=== PATIENT | male | born 1945 | race Caucasian/White ===

== ENCOUNTER → 2016-07-02 | Outpatient (CLI) | payer MEDICARE ==
[~2016-07-02] MED LIST: /TAMS4CA OR; ACET65TA OR; ALBUTEROL INHALER INH; ASPI81CH32 PO; AVOD0.5C OR; CIPR250T3 OR; CIPR25SS OR; LEVA750T OR; PHEN 25 OR; PLAV75TA38 PO; PRIL20CA OR; PRIL20CA9 PO; SIMV20TA2 OR; TESS100C OR; TYLE325T5 PO; ZOCOR OR; cipro
== END ==
LOC: M SMT 10:50
PROVIDERS: ATTEND Urology
DX: R31.9 Hematuria, unspecified (principal)

== ENCOUNTER → 2016-08-05 | Outpatient (REF) | payer MEDICARE ==
[2016-08-05 13:48] LABS: TOTAL PROTEIN 8.2 GM/DL (6.4-8.2)
[2016-08-06 13:45] LABS: ALBUMIN 4.44 GM/DL (3.29-5.55); ALBUMIN % 54.1 % (55.8-66.1); GAMMA GLOBULIN % 14.5 % (11.1-18.8)
== END ==
LOC: M LAB REF 12:08
DX: R77.9 Abnormality of plasma protein, unspecified (principal)

== ENCOUNTER 2016-10-11 09:54 | Inpatient (IN) | payer MEDICARE ==
[~2016-10-11] VITALS: Ht 175.3 cm; Wt 75.1 kg
[2016-10-11] MEDS ORDERED: FINA5TAB2 (10:03)
[2016-10-11] MEDS ORDERED: ASPIRIN 81 MG CHEW TABLET PO ONE ×2 (10:15→10:30)
[2016-10-11 10:37] LABS: BASO % 0.1 % (0.0-1.0); EOS % 0.3 % (0.0-3.0); LARGE UNSTAINED CELL # 0.1 K/mm3 (0.0-0.4); LARGE UNSTAINED CELL % 0.4 % (0.0-4.0); LYMPH # 0.7 K/mm3 (1.5-4.5); LYMPH % 4.5 % (24.0-44.0); MEAN CORPUSCULAR HEMOGLOBIN 26.2 pg (27.0-33.0); MEAN CORPUSCULAR HGB CONC 32.2 g/dl (32.0-36.5); MEAN CORPUSCULAR VOLUME 81.3 fl (80.0-96.0); MONO # 0.6 K/mm3 (0.0-0.8); MONO % 3.8 % (0.0-5.0); NEUTROPHILS # 14.4 K/mm3 (1.8-7.7); NEUTROPHILS % 90.7 % (36.0-66.0); PLATELET COUNT, AUTOMATED 296 k/mm3 (150-450); RED CELL DISTRIBUTION WIDTH 13.9 % (11.5-14.5); WHITE BLOOD COUNT 15.9 K/mm3 (4.0-10.0)
--- NOTE | 2016-10-11 10:38 | REP ---
Chest one-view HISTORY: Chest pain Comparison: 09/30/2015 Increased density is present in the left lower lobe consistent with atelectasis or infiltrate. The right lung is clear. The heart is normal in size. The pulmonary vasculature is normal in appearance. Impression: Left lower lobe atelectasis or infiltrate. Signed by Antolin Barrera MD 10/11/2016 10:29 A
[2016-10-11] MEDS ORDERED: NS 500 ML IV ONE (11:00)
[2016-10-11 11:01] LABS: ANION GAP 11 MEQ/L (8-16); BLOOD UREA NITROGEN 20 MG/DL (7-18); CALCIUM LEVEL 9.4 MG/DL (8.8-10.2); CARBON DIOXIDE LEVEL 23 MEQ/L (21-32); CHLORIDE LEVEL 105 MEQ/L (98-107); CREATININE FOR GFR 1.05 MG/DL (0.70-1.30); GLOMERULAR FILTRATION RATE > 60.0 (>49); GLUCOSE, FASTING 109 MG/DL (80-110); SODIUM LEVEL 139 MEQ/L (136-145)
[2016-10-11] MEDS ORDERED: LevoFLOXacin IV 500 MG in APPROPRIATE DILUENT 1 EA IV ONE (11:15)
[2016-10-11] MEDS ORDERED: ASPI1TAB PO (11:22)
[2016-10-11] MEDS ORDERED: FINA5TAB2 PO (11:22)
[2016-10-11] MEDS ORDERED: SIMV20TA2 PO (11:22)
[2016-10-11] MEDS ORDERED: PERCOCET 5MG/325MG TAB PO ONE (12:15)
--- NOTE | 2016-10-11 13:42 | HPEPDOC ---
Medical History and Physical Date of Admission 10/11/16 History and Physical ATTENDING: Dr. Pereira PCP: Dr Rich CC: Chest pain HPI: 71 yo M with a past medical history significant for GERD, carotid vascular disease, hyperlipidemia, BPH who states he woke up this morning at 4 AM with chest discomfort on the left side. He states he had had sweating during the night, unknown if he had fever. Does not report chills. States he did notice some shortness of breath for the past week with a dry cough. No sputum production. Patient states he's been feeling generally tired with some nausea this morning. He is now attempting to eat lunch. Denies any VALENTE, palpitations, abdominal pain, N/V/D or changes in bowel or bladder habits. Upon presentation to the hospital the patient was found to have CAP, thus the hospitalist team was consulted. PMHx: GERD Carotid vascular disease/occluded left carotid. Follows with Dr Hernandez in [place]. Hyperlipidemia BPH. Follows with Dr. Wynne PSHX: Bob fundoplication Colonoscopy 11/29 Emmy TURP 06/26 SOCHX: Resides in: [place] Marital Status: Kids: 3, 1 Employment: retired Tobacco use: denies ETOH: denies Illicit Drugs: Denies Recent travel: denies Advanced directives: none FAMHX: Mother: , ESRD, cardiomyopathy Father: , Parkinson's disease Siblings: Alive, well Children: Alive. History of colon cancer Unexpected deaths due to medical reasons: Daughter Crohn's, ESRD.. ROS: As noted in HPI, otherwise 11pt ROS of systems reviewed and unremarkable. PE: GEN: 71yoM, appears stated age. Well-nourished, well developed. No acute distress. Alert and oriented x 3. Pleasant, interactive. HEENT: Normocephalic, atraumatic. Pupils are equal, round, and reactive to light. Extraocular movements are intact. No nystagmus appreciated. Sclera are nonicteric. Conjunctiva without injection. Nose midline. Nasal turbinates without bogginess. EACs both patent BL. TMs both visualized and maldonado with good cone of light, no bulging or erythema. No facial asymmetry. Moist mucous membranes. Dentition fair. Pharynx pink and moist, no cobblestoning. Neck supple , trachea midline. No lymphadenopathy or thyromegaly appreciated. CHEST: Regular rate and rhythm, +S1, +S2 LUNGS: Good air entry, rales noted at left base. No wheezes, or rhonchi. Breathing appears symmetric and easy. Patient is speaking in full sentences. No accessory muscle use. ABD: Round, soft, non-tender, non-distended. +Bowel sounds throughout. No rebound or guarding. No costovertebral angle tenderness. EXT: Pulses 2+ bilaterally dorsalis pedis and radial. No lower extremity edema appreciated. SKIN: [place], dry, warm. Capillary refill <2sec. No rashes. NEURO: Alert and oriented x 3. Cranial nerves III-XII are intact. No focal deficits appreciated. CXR: 10/11 Left lower lobe atelectasis or infiltrate. EKG: Sinus tachycardia, 101 bpm, occasional supraventricular, LVH, nonspecific ST-T wave abnormality. BLOOD CULTURES: Pending LA 2.1 A&P: 71 yo M with a past medical history significant for GERD, carotid vascular disease, hyperlipidemia, BPH who states he woke up this morning at 4 AM with chest discomfort on the left side. He states he had had sweating during the night, unknown if he had fever. Does not report chills. States he did notice some shortness of breath for the past week with a dry cough. No sputum production. The patient will be admitted to PCU for at least [address] Pereira's service. Pt is discussed with Dr Olivas. CP. Consistent with pleuritic pain and CAP. CIP/Trop x 3. Tylenol as needed. CAP. O2 as needed, neb treatments, IV levaquin 750mg daily. IVF 500cc in ED. SC , BC x2 pending. UA pending. Repeat LA at 15:00hrs ordered. Daily labs. Nausea. Resolved currently. Zofran prn. GERD. Continue PPI. Carotid vascular disease. Follows with Dr. Hernandez in [place]. Remains on aspirin 81 mg daily and Plavix 75 mg daily. Hyperlipidemia. Continue statin. BPH. Continue finasteride. Follows as outpatient with urology. DVT prophylaxis. Lovenox. The patient is a Full code Vital Signs Vital Signs Date Time Temp Pulse Resp B/P (MAP) Pulse Ox O2 Delivery O2 Flow Rate FiO2 10/11/16 12:57 86 18 126/74 96 Room Air 10/11/16 11:41 100.0 Laboratory Data Labs 24H Laboratory Tests 2 10/11/16 10:18: White Blood Count 15.9H, Red Blood Count 5.15, Hemoglobin 13.5L, Hematocrit 41.8L, Mean Corpuscular Volume 81.3, Mean Corpuscular Hemoglobin 26.2L, Mean Corpuscular Hemoglobin Concent 32.2, Red Cell Distribution Width 13.9, Platelet Count 296, Neutrophils (%) (Auto) 90.7H, Lymphocytes (%) (Auto) 4.5L, Monocytes (%) (Auto) 3.8, Eosinophils (%) (Auto) 0.3, Basophils (%) (Auto) 0.1, Neutrophils # (Auto) 14.4H, Lymphocytes # (Auto) 0.7L, Monocytes # (Auto) 0.6, Eosinophils # (Auto) 0.0, Basophils # (Auto) 0.0, Large Unclassified Cells % 0.4 , Large Unclassified Cells # 0.1, Anion Gap 11, Glomerular Filtration Rate > 60.0, Lactic Acid Level 2.1*H, Blood Urea Nitrogen 20H, Creatinine 1.05, Sodium Level 139, Potassium Level 4.0, Chloride Level 105, Carbon Dioxide Level 23, Calcium Level 9.4, Total Creatine Kinase 97, Creatine Kinase MB 1.0, Creatine Kinase MB Relative Index 1.03, Troponin I < 0.02, B-Type Natriuretic Peptide 27.4 CBC/BMP Laboratory Tests 10/11/16 10:18 Red Blood Count 5.15, Mean Corpuscular Volume 81.3, Mean Corpuscular Hemoglobin 26.2 L, Mean Corpuscular Hemoglobin Concent 32.2, Red Cell Distribution Width 13.9, Neutrophils (%) (Auto) 90.7 H, Lymphocytes (%) (Auto) 4.5 L, Monocytes (% ) (Auto) 3.8, Eosinophils (%) (Auto) 0.3, Basophils (%) (Auto) 0.1, Neutrophils # (Auto) 14.4 H, Lymphocytes # (Auto) 0.7 L, Monocytes # (Auto) 0.6, Eosinophils # (Auto) 0.0, Basophils # (Auto) 0.0, Calcium Level 9.4, Total Creatine Kinase 97 Microbiology Microbiology 10/11/16 Blood Culture, Received Pending 10/11/16 Blood Culture, Received Pending Home Medications Scheduled Aspirin (Aspirin 81) 81 Mg Tab, 81 MG PO DAILY Clopidogrel Bisulfate (Plavix) 75 Mg Tab, 75 MG PO DAILY Finasteride (Finasteride) 5 Mg Tab, 5 MG PO QPM Omeprazole (Prilosec) 20 Mg Cap, 20 MG PO DAILY Simvastatin (Simvastatin) 20 Mg Tab, 20 MG PO QHS Scheduled PRN Acetaminophen (Tylenol) 325 Mg Tab, 650 MG PO Q4H PRN for PAIN OR FEVER Allergies Coded Allergies: No Known Drug Allergy (Verified Allergy, Unknown, 09/17/12) Analy [place] Oct 11, 2016 13:42
[2016-10-11] MEDS ORDERED: IPRATROPIUM 0.5MG/ALBUTEROL 2.5MG INH SOL UD 3ML (DUONEB)(J7620) NEB PRN (14:00)
[2016-10-11] MEDS ORDERED: ONDANSETRON 4MG/2ML VIAL (J2405) IV PRN (14:00)
[2016-10-11] MEDS: IPRATROPIUM 0.5MG/ALBUTEROL 2.5MG INH SOL UD 3ML (DUONEB)(J7620) NEB SCH ×2 (14:00→19:22)
[2016-10-11] MEDS ORDERED: ACETAMINOPHEN TAB 650MG DOSE (2X325MG) PO PRN (14:00)
[2016-10-11 15:35] VITALS: BP 119/75
[2016-10-11] MEDS ORDERED: NS 1,000 ML IV ONE (16:00)
[2016-10-11] MEDS: ENOXAPARIN 40 MG/0.4 ML SYRINGE (J1650) SC SCH (16:35)
[2016-10-11] MEDS: SIMVASTATIN 20 MG TAB PO SCH (20:27)
[2016-10-11] MEDS: FINASTERIDE 5 MG TAB PO SCH (20:27)
[2016-10-11 22:00] VITALS: BP 106/62
[2016-10-12] MEDS: IPRATROPIUM 0.5MG/ALBUTEROL 2.5MG INH SOL UD 3ML (DUONEB)(J7620) NEB SCH ×4 (02:00→19:45)
[2016-10-12 06:00] VITALS: BP 136/79
[2016-10-12 06:09] LABS: BASO % 0.3 % (0.0-1.0); EOS # 0.1 K/mm3 (0.0-0.50); EOS % 1.2 % (0.0-3.0); LARGE UNSTAINED CELL # 0.1 K/mm3 (0.0-0.4); LYMPH # 1.8 K/mm3 (1.5-4.5); LYMPH % 20.3 % (24.0-44.0); MEAN CORPUSCULAR HEMOGLOBIN 27.1 pg (27.0-33.0); MEAN CORPUSCULAR HGB CONC 32.7 g/dl (32.0-36.5); MEAN CORPUSCULAR VOLUME 82.8 fl (80.0-96.0); MONO # 0.4 K/mm3 (0.0-0.8); MONO % 4.7 % (0.0-5.0); NEUTROPHILS # 6.4 K/mm3 (1.8-7.7); NEUTROPHILS % 72.5 % (36.0-66.0); PLATELET COUNT, AUTOMATED 261 k/mm3 (150-450); WHITE BLOOD COUNT 8.9 K/mm3 (4.0-10.0)
[2016-10-12 06:36] LABS: ALBUMIN/GLOBULIN RATIO 0.73 (1.00-1.93); ALKALINE PHOSPHATASE 84 U/L (45-117); ALT/SGPT 24 U/L (12-78); ANION GAP 6 MEQ/L (8-16); AST/SGOT 15 U/L (15-37); BILIRUBIN,TOTAL 0.5 MG/DL (0.2-1.0); BLOOD UREA NITROGEN 14 MG/DL (7-18); CALCIUM LEVEL 8.6 MG/DL (8.8-10.2); CARBON DIOXIDE LEVEL 28 MEQ/L (21-32); CHLORIDE LEVEL 108 MEQ/L (98-107); CREATININE FOR GFR 0.96 MG/DL (0.70-1.30); GLOMERULAR FILTRATION RATE > 60.0 (>49); GLUCOSE, FASTING 97 MG/DL (80-110); POTASSIUM SERUM 4.3 MEQ/L (3.5-5.1); SODIUM LEVEL 142 MEQ/L (136-145); TOTAL PROTEIN 7.1 GM/DL (6.4-8.2)
--- NOTE | 2016-10-12 08:44 | ECGEPIP ---
Stationary ECG Study [facility] - ED Test Date: 2016-10-11 Pat Name: MICHELET VARELA Department: Room: - Gender: M Tie Buyer: RAMÓN : 1945 Requested By: TRAMAINE Balderas Order Number: [id number] Reading MD: Jojo Mike Measurements Intervals [place] Rate: 101 P: 13 SD: 124 QRS: -24 QRSD: 96 T: -18 QT: 318 QTc: 414 Interpretive Statements SINUS TACHYCARDIA WITH OCCASIONAL SUPRAVENTRICULAR PREMATURE COMPLEXES BORDERLINE LEFT AXIS DEVIATION LAE MINIMAL VOLTAGE CRITERIA FOR LVH, CONSIDER NORMAL VARIANT NONSPECIFIC T-WAVE ABNORMALITY ABNORMAL RHYTHM ECG SIMILAR 09/30/15 Electronically Signed On 10-12-2016 8:43:48 EDT by Jojo Mike
[2016-10-12] MEDS: CLOPIDOGREL 75 MG TAB PO SCH (08:48)
[2016-10-12] MEDS: ASPIRIN 81 MG ENTERIC TAB PO SCH (08:48)
[2016-10-12] MEDS: OMEPRAZOLE 20 MG CAP PO SCH (08:49)
[2016-10-12] MEDS: ENOXAPARIN 40 MG/0.4 ML SYRINGE (J1650) SC SCH (08:49)
[2016-10-12] MEDS: LevoFLOXacin IV 750 MG in APPROPRIATE DILUENT 1 EA IV SCH (11:38)
--- NOTE | 2016-10-12 12:18 | IPNPDOC ---
Subjective Date Seen The patient was seen on 10/12/16. Subjective Chief Complaint/HPI The patient is a 71-year-old male admitted with a reason for visit of Pneumonia. General: Denies: Chills Constitutional: Denies: Chills Eyes: Denies: Vision change, Conjunctivae inflammation, Eyelid inflammation Pulmonary: Denies: Dyspnea, Cough Cardiovascular: Denies: Chest Pain, Palpitations Gastrointestinal: Denies: Nausea, Vomiting, Abdominal Pain, Diarrhea, Constipation Neurological: Denies: Weakness Psych: Reports: Mood Normal Objective Physical Examination General Exam: Positive: Alert, Cooperative, No Acute Distress Eye Exam: Positive: Conjunctiva & lids normal, EOMI, Negative: Sclera icteric, Ptosis ENT Exam: Positive: Mucous membr. moist/pink, Nares Patent Chest Exam: Positive: Wheezing (end exp wheeze right UL), Diminished (LLL), Negative: Rales, Rhonchi Heart Exam: Positive: Rate Normal, Normal S1, Normal S2, Negative: Tachycardic, Bradycardic Abdomen Exam: Positive: Normal bowel sounds, Soft, Negative: BS Hyperactive, BS Hypoactive, Tenderness, Hepatospenomegaly Extremity Exam: Negative: Clubbing, Edema Assessment /Plan Problems (1) Left sided chest pain Status: Acute Response to Treatment: Stable Problem Text: pt denies CP today likely 2/2 pleuritic pain and CAP. Trop x 4 Tylenol as needed continue to monitor (2) Pneumonia Status: Acute Response to Treatment: Stable Problem Text: pt denies SOB on exam today O2 as needed Duoneb treatments levaquin antibiotic therapy. blood cx neg 48 hrs, ua negative, resp. panel neg, repeat lactic down to 1.2, sputum pending, wbc down to 8.9 from15.9 continue to monitor (3) Hyperlipidemia Status: Chronic Response to Treatment: Stable Problem Text: continue with home medications (4) Carotid artery disease Status: Chronic Response to Treatment: Stable Problem Text: stable follows w/ Dr. Hernandez in [place] continue with plavix and aspirin continue to monitor (5) DVT prophylaxis Plan/VTE VTE Prophylaxis Ordered?: Yes VS, I&O, 24H, Fishbone Vital Signs/I&O Vital Signs Date Time Temp Pulse Resp B/P (MAP) Pulse Ox O2 Delivery O2 Flow Rate FiO2 10/12/16 09:00 Room Air 10/12/16 06:00 98.7 67 17 136/79 ( 96 I&O- Last 24 Hours up to 6 AM 10/12/16 05:59 Intake Total 2660 ml Output Total 1040 ml Balance 1620 ml Laboratory Data 24H LABS Laboratory Tests 2 10/11/16 15:10: Lactic Acid Followup at 4 Hours 2.4*H 10/11/16 18:20: Lactic Acid Level 3.7*H, Total Creatine Kinase 74, Creatine Kinase MB 1.3, Creatine Kinase MB Relative Index 1.75, Troponin I < 0.02 10/11/16 20:33: Urine Appearance CLEAR, Urine Color STRAW, Urine pH 6.0, Urine Specific [place] 1.010, Urine Protein NEGATIVE, Urine Glucose (UA) NEGATIVE, Urine Ketones NEGATIVE, Urine Urobilinogen 0.2, Urine Bilirubin NEGATIVE, Urine Leukocyte Esterase NEGATIVE, Urine Blood NEGATIVE, Urine Nitrite NEGATIVE, Urine WBC (Auto ) 0, Urine RBC (Auto) 3, Urine Hyaline Casts (Auto) 0, Urine Bacteria (Auto) NEGATIVE, Urine Squamous Epithelial Cells 0, Urine Sperm (Auto) 10/11/16 23:52: Total Creatine Kinase 68, Creatine Kinase MB 1.0, Creatine Kinase MB Relative Index 1.47, Troponin I < 0.02 10/11/16 23:53: Lactic Acid Followup at 4 Hours 1.2 10/12/16 05:53: White Blood Count 8.9, Red Blood Count 4.49, Hemoglobin 12.2L, Hematocrit 37.2L , Mean Corpuscular Volume 82.8, Mean Corpuscular Hemoglobin 27.1, Mean Corpuscular Hemoglobin Concent 32.7, Red Cell Distribution Width 14.0, Platelet Count 261, Neutrophils (%) (Auto) 72.5H, Lymphocytes (%) (Auto) 20.3L, Monocytes (%) (Auto) 4.7, Eosinophils (%) (Auto) 1.2, Basophils (%) (Auto) 0.3, Neutrophils # (Auto) 6.4, Lymphocytes # (Auto) 1.8, Monocytes # (Auto) 0.4, Eosinophils # (Auto) 0.1, Basophils # (Auto) 0.0, Large Unclassified Cells % 1.0 , Large Unclassified Cells # 0.1, Anion Gap 6L, Glomerular Filtration Rate > 60.0, Blood Urea Nitrogen 14, Creatinine 0.96, Sodium Level 142, Potassium Level 4.3, Chloride Level 108H, Carbon Dioxide Level 28, Calcium Level 8.6L, Aspartate Amino Transf (AST/SGOT) 15, Alanine Aminotransferase (ALT/SGPT) 24, Alkaline Phosphatase 84, Total Bilirubin 0.5, Total Protein 7.1, Albumin 3.0L, Albumin/Globulin Ratio 0.73L 10/12/16 11:06: Total Creatine Kinase 71, Creatine Kinase MB 1.0, Creatine Kinase MB Relative Index 1.40, Troponin I < 0.02 CBC/BMP Laboratory Tests 10/12/16 05:53 Red Blood Count 4.49, Mean Corpuscular Volume 82.8, Mean Corpuscular Hemoglobin 27.1, Mean Corpuscular Hemoglobin Concent 32.7, Red Cell Distribution Width 14.0 , Neutrophils (%) (Auto) 72.5 H, Lymphocytes (%) (Auto) 20.3 L, Monocytes (%) ( Auto) 4.7, Eosinophils (%) (Auto) 1.2, Basophils (%) (Auto) 0.3, Neutrophils # ( Auto) 6.4, Lymphocytes # (Auto) 1.8, Monocytes # (Auto) 0.4, Eosinophils # (Auto ) 0.1, Basophils # (Auto) 0.0, Calcium Level 8.6 L, Aspartate Amino Transf (AST/ SGOT) 15, Alanine Aminotransferase (ALT/SGPT) 24, Alkaline Phosphatase 84, Total Bilirubin 0.5, Total Protein 7.1, Albumin 3.0 L Microbiology Microbiology 10/11/16 Blood Culture - Preliminary, Resulted No growth after 24 hours . All specim... 10/11/16 Blood Culture - Preliminary, Resulted No growth after 24 hours . All specim... 10/12/16 Respiratory Virus Panel (PCR) (TRISTAN) - Final, Complete 10/11/16 Influenza Virus Type A Antigen - Final, Complete 10/11/16 Influenza Virus Type B Antigen - Final, Complete GME ATTESTATION GME ATTESTATION My preceptor for this patient encounter was physically present in the building during the encounter and was fully available. As needed, all aspects of the patient interview, examination, medical decision making process, and medical care plan development were reviewed and approved by the preceptor. Preceptor is aware and concurs with the plan as stated in the body of this note and will attest to such by his/her cosignature. ATTENDING NOTE I have both independently examined this patient as well as reviewed the note. I have discussed in detail with the resident the findings and plan of treatment as documented in the residents note. I will continue to follow the patient and offer further guidance to the patients care as necessary during this hospital stay. HANS Quezada DO Oct 12, 2016 12:18 CRUZ WAGONER MD Oct 13, 2016 06:51
[2016-10-12 14:00] VITALS: BP 123/72
[2016-10-12] MEDS: FINASTERIDE 5 MG TAB PO SCH (20:08)
[2016-10-12] MEDS: SIMVASTATIN 20 MG TAB PO SCH (20:08)
[2016-10-12 22:00] VITALS: BP 115/66
[2016-10-13] MEDS: IPRATROPIUM 0.5MG/ALBUTEROL 2.5MG INH SOL UD 3ML (DUONEB)(J7620) NEB SCH ×3 (02:00→13:09)
[2016-10-13 06:00] VITALS: BP 142/90
[2016-10-13 06:03] LABS: BASO % 0.4 % (0.0-1.0); EOS # 0.2 K/mm3 (0.0-0.50); EOS % 2.3 % (0.0-3.0); LARGE UNSTAINED CELL # 0.1 K/mm3 (0.0-0.4); LARGE UNSTAINED CELL % 1.5 % (0.0-4.0); LYMPH % 23.3 % (24.0-44.0); MEAN CORPUSCULAR HEMOGLOBIN 26.4 pg (27.0-33.0); MEAN CORPUSCULAR HGB CONC 31.8 g/dl (32.0-36.5); MEAN CORPUSCULAR VOLUME 82.9 fl (80.0-96.0); MONO # 0.5 K/mm3 (0.0-0.8); MONO % 5.8 % (0.0-5.0); NEUTROPHILS # 5.4 K/mm3 (1.8-7.7); NEUTROPHILS % 66.7 % (36.0-66.0); PLATELET COUNT, AUTOMATED 280 k/mm3 (150-450); RED CELL DISTRIBUTION WIDTH 14.2 % (11.5-14.5); WHITE BLOOD COUNT 8.1 K/mm3 (4.0-10.0)
[2016-10-13 06:25] LABS: ALBUMIN/GLOBULIN RATIO 0.71 (1.00-1.93); ALKALINE PHOSPHATASE 92 U/L (45-117); ALT/SGPT 24 U/L (12-78); ANION GAP 9 MEQ/L (8-16); AST/SGOT 13 U/L (15-37); BILIRUBIN,TOTAL 0.4 MG/DL (0.2-1.0); BLOOD UREA NITROGEN 11 MG/DL (7-18); CALCIUM LEVEL 8.4 MG/DL (8.8-10.2); CARBON DIOXIDE LEVEL 23 MEQ/L (21-32); CHLORIDE LEVEL 107 MEQ/L (98-107); CREATININE FOR GFR 0.96 MG/DL (0.70-1.30); GLOMERULAR FILTRATION RATE > 60.0 (>49); GLUCOSE, FASTING 97 MG/DL (80-110); POTASSIUM SERUM 3.8 MEQ/L (3.5-5.1); SODIUM LEVEL 139 MEQ/L (136-145); TOTAL PROTEIN 7.2 GM/DL (6.4-8.2)
[2016-10-13] MEDS: ENOXAPARIN 40 MG/0.4 ML SYRINGE (J1650) SC SCH (09:02)
[2016-10-13] MEDS: OMEPRAZOLE 20 MG CAP PO SCH (09:02)
[2016-10-13] MEDS: ASPIRIN 81 MG ENTERIC TAB PO SCH (09:02)
[2016-10-13] MEDS: CLOPIDOGREL 75 MG TAB PO SCH (09:02)
[2016-10-13] MEDS ORDERED: LEVO750T33 PO (10:19)
[2016-10-13] MEDS: LevoFLOXacin IV 750 MG in APPROPRIATE DILUENT 1 EA IV SCH (11:52)
--- NOTE | 2016-10-14 05:37 | DSES ---
DATE OF ADMISSION: 10/11/2016 DATE OF DISCHARGE: 10/13/2016 PRIMARY CARE PROVIDER: Dr. Prosper Rich. FINAL DIAGNOSES: 1. Community-acquired bacterial pneumonia with left-sided pleuritic chest pain. 2. Shortness of breath. 3. Dyslipidemia. 4. Carotid artery disease. HISTORY OF PRESENT ILLNESS: This is a 71-year-old male patient with underlying medical history of gastroesophageal reflux disease (GERD), carotid vascular disease, dyslipidemia, benign prostatic hypertrophy (BPH), who woke up in the morning of admission at 4 a.m. with chest discomfort left-sided and also was sweaty, and also shortness of breath and cough. The patient does not know if he had fevers and denies any chills. The patient also reported some dry cough with some shortness of breath. Denies any sick contact. Unable to produce any sputum. Feeling generally fatigued, some nausea, no vomiting with poor oral intake. Denies any change in bladder habits. Subsequently the patient presented to the hospital. Serial cardiac enzymes were done and were negative. The patient was found to have lactic acidosis. X-ray shows left lower lobe infiltrate. The patient was started on intravenous (IV) antibiotics. IV fluids were given. HOSPITAL COURSE: The patient was admitted to the hospital, started on IV antibiotics for community-acquired bacterial pneumonia, and IV fluids were given. Lactic acidosis resolved. The patient's condition returned to baseline with no shortness of breath, able to ambulate. Tolerating oral with only minimal cough. Comfortable, ready for discharge for further care as outpatient. Also noticed that patient has a systolic murmur, and the patient would like to followup with Dr. Wu as outpatient. Subsequently referral was made. Cardiac enzymes have been negative. Electrocardiograms (EKG) have been negative. Chest pain is most likely secondary to pneumonia with pleuritic pain. VITAL SIGNS: Temperature 99, pulse 79, respirations 18, blood pressure 142/90. Pulse oximetry 96% on room air. LABORATORY DATA: WBC 8.1, hemoglobin and hematocrit 12.4 over 38.8, platelets 280. Chemistry: Sodium 139, potassium 3.8, chloride 107, bicarbonate 23, BUN 11, creatinine 0.96. DISCHARGE MEDICATIONS: - Levaquin 750 mg by mouth daily for five more days - acetaminophen 650 mg by mouth every four hours as needed - aspirin 81 mg by mouth daily - Plavix 75 mg by mouth daily - finasteride 5 mg by mouth at bedtime - Prilosec 20 mg by mouth daily - Zocor 20 mg by mouth at bedtime DISCHARGE INSTRUCTIONS: The patient was instructed to followup with primary care provider in seven days. Return to the hospital if symptoms worsen. As per patient's desire, the patient would like to followup with Dr. Wu for the cardiac murmur. The patient is not sure whether the murmur is chronic or acute. He has no symptoms.
== END 2016-10-13 13:54 | disposition home or self-care (01) | DRG 195 ==
LOC: M ED 12:28 → M ED INP 13:48 → M MSPAV 15:20
PROVIDERS: ADMIT Internal Medicine; ATTEND Hospitalist
DX: J15.9 Unspecified bacterial pneumonia (principal); E78.5 Hyperlipidemia, unspecified; K21.9 Gastro-esophageal reflux disease without esophagitis; N40.0 Benign prostatic hyperplasia without lower urinary tract symptoms; Z79.899 Other long term (current) drug therapy; Z79.82 Long term (current) use of aspirin; I65.22 Occlusion and stenosis of left carotid artery

== ENCOUNTER 2016-11-19 13:58 | Emergency (ER) | payer MEDICARE ==
[~2016-11-19] VITALS: Ht 175.3 cm; Wt 80.3 kg
[~2016-11-19 13:58] MED LIST changes: +ASPI1TAB PO; +FINA5TAB2; +FINA5TAB2 PO; +LEVO750T33 PO; +SIMV20TA2 PO
--- NOTE | 2016-11-19 15:30 | REP ---
Chest two views HISTORY: Cough Comparison: 10/11/2016 There is elevation of the left hemidiaphragm. Linear density is present in the left lower lobe consistent with scar. The right lung is clear. The heart is normal in size. The pulmonary vasculature is normal in appearance. The bony structure is intact. IMPRESSION: Left lower lobe scar. Signed by Antolin Barrera MD 11/19/2016 03:22 P
[2016-11-19] MEDS ORDERED: ACET30TAB PO (15:42)
[2016-11-19] MEDS ORDERED: ZITHTAB PO (15:42)
[2016-11-19 15:50] VITALS: BP 142/79
--- NOTE | 2016-11-20 07:21 | ECGEPIP ---
Stationary ECG Study [facility] - ED Test Date: 2016-11-19 Pat Name: MICHELET VARELA Department: Room: - Gender: M Parole Director: tk : 1945 Requested By: Jojo Mike Order Number: [id number] Reading MD: Isrrael Calvert Measurements Intervals [place] Rate: 71 P: 14 AL: 166 QRS: -16 QRSD: 88 T: -7 QT: 379 QTc: 412 Interpretive Statements SINUS RHYTHM Electronically Signed On 11-20-2016 7:21:00 EDT by Isrrael Calvert
== END 2016-11-19 15:53 | disposition home or self-care (01) ==
LOC: M ED 14:45
DX: J06.9 Acute upper respiratory infection, unspecified (principal); M94.0 Chondrocostal junction syndrome [Tietze]; I10 Essential (primary) hypertension; I25.10 Atherosclerotic heart disease of native coronary artery without angina pectoris; E78.5 Hyperlipidemia, unspecified; I25.2 Old myocardial infarction; Z87.09 Personal history of other diseases of the respiratory system; Z79.899 Other long term (current) drug therapy; Z79.82 Long term (current) use of aspirin

== ENCOUNTER → 2017-01-29 | Outpatient (REF) | payer MEDICARE ==
[~2017-01-29] MED LIST changes: +ACET30TAB PO; +LEVO750T13 PO; -LEVO750T33 PO; +PLAV1TAB2 PO; -PLAV75TA38 PO; +ZITHTAB PO
== END ==
LOC: M SMT 13:20
PROVIDERS: ATTEND Urology
DX: N40.1 Benign prostatic hyperplasia with lower urinary tract symptoms (principal)

== ENCOUNTER → 2017-02-10 | Outpatient (REF) | payer MEDICARE ==
[2017-02-10 20:01] LABS: TOTAL PROTEIN 7.9 GM/DL (6.4-8.2)
[2017-02-12 12:22] LABS: ALBUMIN % 54.4 % (55.8-66.1); GAMMA GLOBULIN % 13.9 % (11.1-18.8)
== END ==
LOC: M LAB REF 18:11
PROVIDERS: ATTEND Family Medicine
DX: R77.9 Abnormality of plasma protein, unspecified (principal)

== ENCOUNTER → 2017-09-03 | Outpatient (CLI) | payer OTHER ==
[2017-09-03 13:35] LABS: PROSTATIC SPECIFIC AG MONITOR 3.67 NG/ML (< 4.0)
[2017-09-03 13:44] LABS: APPEARANCE, URINE CLEAR (CLEAR); BACTERIA, URINE AUTO NEGATIVE (NEGATIVE); BILIRUBIN, URINE AUTO NEGATIVE (NEGATIVE); BLOOD, URINE BLOOD NEGATIVE (NEGATIVE); COLOR, URINE YELLOW (YELLOW); GLUCOSE, URINE (UA) AUTO NEGATIVE (NEGATIVE); KETONE, URINE AUTO NEGATIVE (NEGATIVE); LEUKOCYTE ESTERASE, URINE AUTO NEGATIVE (NEGATIVE); MUCUS, URINE SMALL (NEGATIVE); NITRITE, URINE AUTO NEGATIVE (NEGATIVE); PROTEIN, URINE AUTO NEGATIVE (NEGATIVE); RBC, URINE AUTO 0 /HPF (0-3); SPECIFIC GRAVITY URINE AUTO 1.009 (1.002-1.035); SQUAMOUS EPITHELIAL CELL UR AU 0 /HPF (0-6); UROBILINOGEN, URINE AUTO 0.2 mg/dL (0.0-2.0); WBC, URINE AUTO 0 /HPF (0-3)
== END ==
LOC: M SMT 11:24
DX: N40.1 Benign prostatic hyperplasia with lower urinary tract symptoms (principal)
CPT/HCPCS: 84153

== ENCOUNTER → 2018-03-13 | Outpatient (CLI) | payer OTHER ==
[2018-03-15 00:06] LABS: PSA % FREE 13.4 % (.); PSA FREE 0.59 ng/mL; PSA TOTAL 4.4 ng/mL (0.0-4.0)
== END ==
LOC: M LAB 12:52
DX: N40.1 Benign prostatic hyperplasia with lower urinary tract symptoms (principal)
CPT/HCPCS: 84154

== ENCOUNTER → 2018-08-26 | Outpatient (REF) | payer OTHER ==
[2018-08-26 17:50] LABS: URINE TOTAL PROTEIN 11.1 MG/DL (0-12)
[2018-08-26 18:01] LABS: FERRITIN 25 NG/ML (26-388); TOTAL PROTEIN 7.9 GM/DL (6.4-8.2)
[2018-08-26 18:04] LABS: FOLATE 8.5 NG/ML; VITAMIN B12 LEVEL 476 PG/ML
[2018-08-27 11:50] LABS: ALBUMIN 4.15 GM/DL (3.29-5.55); ALBUMIN % 52.5 % (55.8-66.1); ALPHA-1-GLOBULIN % 4.1 % (2.9-4.9); ALPHA-1-GLOBULINS 0.32 GM/DL (0.17-0.41); ALPHA-2-GLOBULINS 0.97 GM/DL (0.42-0.99); ALPHA-2-GLOBULINS % 12.3 % (7.1-11.8); BETA-1-GLOBULINS 0.57 GM/DL (0.28-0.60); BETA-1-GLOBULINS % 7.2 % (4.7-7.2); BETA-2-GLOBULINS % 8.8 % (3.2-6.5); GAMMA GLOBULIN % 15.1 % (11.1-18.8); GAMMA GLOBULINS 1.19 GM/DL (0.65-1.58)
== END ==
LOC: M LAB REF 16:45
PROVIDERS: ATTEND Family Medicine
DX: D64.9 Anemia, unspecified (principal)

== ENCOUNTER → 2019-03-04 | Outpatient (CLI) | payer MEDICARE ==
[~2019-03-04] MED LIST changes: -/TAMS4CA OR; +ACET-716 PO; -ACET30TAB PO; -ASPI1TAB PO; -ASPI81CH32 PO; +ASPI81CH33 PO; +ASPI81TA26 PO; +FLOM0.4C39 OR
[2019-03-04 13:38] LABS: BLOOD UREA NITROGEN 14 MG/DL (7-18); CREATININE FOR GFR 1.11 MG/DL (0.70-1.30); GLOMERULAR FILTRATION RATE > 60.0 (>42)
== END ==
LOC: M LAB 11:58
PROVIDERS: ATTEND Neurological Surgery
DX: I65.22 Occlusion and stenosis of left carotid artery (principal)

== ENCOUNTER → 2019-04-12 | Outpatient (REF) | payer MEDICARE ==
[2019-04-15 00:07] LABS: PSA FREE 0.57 ng/mL; PSA TOTAL 5.7 ng/mL (0.0-4.0)
== END ==
LOC: M SMT 10:34
PROVIDERS: ATTEND Urology
DX: N40.1 Benign prostatic hyperplasia with lower urinary tract symptoms (principal); I65.22 Occlusion and stenosis of left carotid artery

== ENCOUNTER → 2019-04-12 | Outpatient (CLI) | payer MEDICARE ==
[2019-04-12 17:25] LABS: BLOOD UREA NITROGEN 12 MG/DL (7-18); CREATININE FOR GFR 1.12 MG/DL (0.70-1.30); GLOMERULAR FILTRATION RATE > 60.0 (>42)
== END ==
LOC: M LAB 16:35
PROVIDERS: ATTEND Neurological Surgery
DX: I65.22 Occlusion and stenosis of left carotid artery (principal)

== ENCOUNTER → 2019-05-11 | Outpatient (CLI) | payer MEDICARE ==
[~2019-05-11] MED LIST changes: -SIMV20TA2 PO; +SIMV20TA22 PO
--- NOTE | 2019-05-11 13:33 | REPPI ---
TRANSRECTAL PROSTATE ULTRASOUND WITH ULTRASOUND GUIDANCE FOR PROSTATE BIOPSY: Real-time sonographic evaluation of the prostate performed utilizing transrectal probe. The size of the gland is 4.2 x 2.0 x 4.3 cm for a total volume of 27.4 mL. Echotexture is heterogeneous. No focal mass is seen. Seminal vesicles appear unremarkable. Ultrasound guidance was provided by Dr. Flores who performed ultrasound guided biopsy of the prostate. Electronically Signed by Zoltan Mccauley MD 05/11/2019 02:32 P
== END ==
LOC: M SMT PRO 09:26
PROVIDERS: ATTEND Urology
DX: C61 Malignant neoplasm of prostate (principal)
CPT/HCPCS: 55700; 76872; 76942; G0416

== ENCOUNTER → 2019-05-11 | Outpatient (CLI) | payer MEDICARE | LOC: M SMT PRO 08:14 | PROVIDERS: ATTEND Urology | DX: C61 Malignant neoplasm of prostate (principal) ==

== ENCOUNTER → 2019-05-18 | Outpatient (CLI) | payer MEDICARE ==
[2019-05-18 17:41] LABS: BLOOD UREA NITROGEN 12 MG/DL (7-18); CALCIUM LEVEL 9.1 MG/DL (8.8-10.2); CARBON DIOXIDE LEVEL 28 MEQ/L (21-32); CHLORIDE LEVEL 103 MEQ/L (98-107); CREATININE FOR GFR 1.11 MG/DL (0.70-1.30); GLOMERULAR FILTRATION RATE > 60.0 (>42); GLUCOSE, FASTING 87 MG/DL (70-100); SODIUM LEVEL 138 MEQ/L (136-145)
== END ==
LOC: M LAB 16:33
PROVIDERS: ATTEND Urology
DX: C61 Malignant neoplasm of prostate (principal)
CPT/HCPCS: 36415; 80048; G0463

== ENCOUNTER → 2019-06-25 | Outpatient (CLI) | payer MEDICARE ==
[2019-06-25 10:47] LABS: HEMATOCRIT 42.2 % (42.0-52.0); HEMOGLOBIN 12.6 g/dl (13.5-17.5); MEAN CORPUSCULAR HEMOGLOBIN 23.9 pg (27.0-33.0); MEAN CORPUSCULAR HGB CONC 29.9 g/dl (32.0-36.5); MEAN CORPUSCULAR VOLUME 79.9 fl (80.0-96.0); PLATELET COUNT, AUTOMATED 414 10^3/uL (150-450); RED BLOOD COUNT 5.28 10^6/uL (4.30-6.10); WHITE BLOOD COUNT 8.6 10^3/uL (4.0-10.0)
[2019-06-25 11:00] LABS: INR 1.05; PARTIAL THROMBOPLASTIN TIME 29.9 SECONDS (25.0-38.4); PROTHROMBIN TIME 13.4 SECONDS (11.8-14.0)
[2019-06-25 11:17] LABS: BLOOD UREA NITROGEN 15 MG/DL (7-18); CARBON DIOXIDE LEVEL 24 MEQ/L (21-32); CHLORIDE LEVEL 104 MEQ/L (98-107); CREATININE FOR GFR 1.12 MG/DL (0.70-1.30); GLOMERULAR FILTRATION RATE > 60.0 (>42); GLUCOSE, FASTING 113 MG/DL (70-100); POTASSIUM SERUM 4.2 MEQ/L (3.5-5.1); SODIUM LEVEL 136 MEQ/L (136-145)
--- NOTE | 2019-06-25 11:48 | REP ---
CHEST, TWO VIEWS: Two views of the chest are performed and compared to a prior study 11/2016. Once again, there is elevation of the left hemidiaphragm. Multiple metallic clips are seen just beneath the left hemidiaphragm and also in the thoracic region in the midline inferiorly. There is no acute infiltrate or pulmonary edema. The heart is normal in size. There is tortuosity of the thoracic aorta. Mediastinal silhouette is unchanged. There are mild degenerative changes of the spine. IMPRESSION: No active pulmonary disease. Electronically Signed by Zoltan Mccauley MD 06/26/2019 03:14 P
== END ==
LOC: M LAB 10:21
PROVIDERS: ATTEND Urology
DX: Z01.818 Encounter for other preprocedural examination (principal); C61 Malignant neoplasm of prostate; Z79.01 Long term (current) use of anticoagulants

== ENCOUNTER → 2019-06-28 | Outpatient (REF) | payer MEDICARE | LOC: M SMT 13:24 | PROVIDERS: ATTEND Urology | DX: Z01.818 Encounter for other preprocedural examination (principal); C61 Malignant neoplasm of prostate; N39.0 Urinary tract infection, site not specified ==

== ENCOUNTER 2019-07-08 10:36 | Day surgery (SDC) | payer MEDICARE ==
[~2019-07-08] VITALS: Ht 175.3 cm; Wt 77.0 kg
[~2019-07-08 10:36] MED LIST changes: +ACET-683 PO; +LIDOCAINE 1% MDV 20ML VIAL SQ PRN; +LIDOCAINE 2% INJ 100 MG/5 ML SDV (FOR ANES.) As Ordered ONE; +MIDAZOLAM INJ 2 MG/2 ML VIAL (J2250) As Ordered ONE; +OMEP-218 PO; +ONDANSETRON 4MG/2ML VIAL (J2405) As Ordered ONE; +ROCURONIUM BROMIDE 50 MG/5 ML VIAL As Ordered ONE; +SUGAMMADEX SODIUM 500 MG/5 ML VIAL (BRIDION) As Ordered ONE; +dexameTHASONE 4 MG/ML 1ML VIAL (J1100) As Ordered ONE; +fentaNYL 250 MCG/5 ML INJECTION (J3010) As Ordered ONE; +propofoL 200 MG/20 ML VIAL As Ordered ONE
[2019-07-08] MEDS ORDERED: ceFAZolin SOD 2 GM in IV 1 EA IV ONE (11:00)
[2019-07-08] MEDS ORDERED: HEPARIN SOD (PORCINE) 5000 UNITS/ML VIAL (J1644 PER 1000UNITS) SQ ONE (11:00)
[2019-07-08] MEDS ORDERED: LR 1,000 ML IV ONE (12:00)
[2019-07-08] MEDS ORDERED: LIDOCAINE 1% SDV INJ 30 ML VIAL As Ordered ONE (12:10)
[2019-07-08] MEDS ORDERED: BUPIVACAINE HCL 0.25% 30ML VIAL As Ordered ONE (12:10)
[2019-07-08] MEDS ORDERED: ACETAMINOPHEN TAB 650MG DOSE (2X325MG) PO PRN (12:30)
[2019-07-08] MEDS ORDERED: PERCOCET 5MG/325MG TAB PO PRN (12:30)
[2019-07-08] MEDS ORDERED: MORPHINE 2 MG/ML 1ML VIAL (J2270) IV PRN ×2 (12:30→18:00)
[2019-07-08] MEDS ORDERED: ACETAMINOPHEN 1000MG 100ML IV BTL (OFIRMEV) (J0131 PER 10MG) As Ordered ONE (13:02)
[2019-07-08] MEDS ORDERED: ONDANSETRON 4MG/2ML VIAL (J2405) As Ordered ONE (15:49)
[2019-07-08] MEDS ORDERED: fentaNYL 100 MCG/2 ML INJECTION (J3010) As Ordered ONE (15:52)
[2019-07-08] MEDS ORDERED: ceFAZolin 2 GM/D5W 50 ML IV BAG (J0690 PER 500MG) As Ordered ONE (16:09)
--- NOTE | 2019-07-08 17:38 | ROOPDOC ---
[facility] Report Of Operation Report of Operation DATE OF PROCEDURE: 07/08/19 PREPROCEDURE DIAGNOSES: Prostate Cancer. POSTPROCEDURE DIAGNOSES: Prostate Cancer. PROCEDURE: Robotic-assisted Laparoscopic Radical Prostatectomy with Bilateral Pelvic Lymph Node Dissection with Anterior Bladder Neck Reconstruction. SURGEON: Trista Melton MD MATERIAL ASSISTANT: Mackenzie Quiles NP ANESTHESIA: General. OPERATIVE INDICATIONS: This is a 74 year old male with clinical T1c Praful 4+4 prostate cancer, here today for treatment. DESCRIPTION OF PROCEDURE: The patient was brought to the operating room and general anesthesia was induced. Prophylactic antibiotics were infused. He was then placed in the supine position and prepped and draped in the usual sterile fashion. At this point, a Parnell catheter was inserted into the bladder and the balloon was filled with 10 mL of sterile water. We then made a midline incision just above the umbilicus for an 8 mm port. A Veress needle was utilized to achieve pneumoperitoneum. Next, an 8 mm port was inserted into the incision and subsequently a camera was inserted. There were no injuries from the Veress needle or initial trocar placement. Then three robotic ports were placed in the usual configuration in line just below the level of the umbilicus. An 12 mm geriatric nurse assistant port was inserted lateral to the camera port. Once all the ports were placed, the robot was docked. Additional lysis of adhesions between the sigmoid colon and abdominal wall was then performed. The bladder was then released from the anterior abdominal wall using electrocautery. Once the bladder was dropped, the fat overlying the prostate was cleared using electrocautery. The superficial dorsal vein was controlled with electrocautery. The endopelvic fascia was opened on both sides and the dorsal venous complex was cleared. Next, a #0 Vicryl [id number] stitch was placed around the dorsal venous complex. Once that was done, the bladder was opened and dissected away from the prostate. While dissecting the prostate away from the bladder, it was evident that he had undergone a transurethral resection of the prostate previously given the large defect inside the prostatic urethra. Because of this large defect, we ended up with a very large bladder neck. Once done with this, the prostate was lifted up. The vasa deferentia were identified in the midline. They were controlled with electrocautery and then transected. The seminal vesicles were also dissected bilaterally. The seminal vesicle on the left appeared much smaller than the one on the right. It was also more adherent to the rectum and so it was very caref ully dissected off of the rectum. The rectum was safely mobilized away from the prostate. At this point I ligated and transected bilateral prostatic pedicles using the Harmonic scalpel. The pedicles were carried towards the apex. After taking care of the pedicles and mobilizing the rectum off the prostate below, the prostate was only connected by the urethra. At this point, the dorsal venous complex was transected with electrocautery. The urethra was then opened and the catheter was withdrawn and the posterior urethra was transected, thus freeing the prostate. At this point, we checked for hemostasis and it appeared very good. Next, we performed bilateral pelvic lymph node dissection. This was done in a standard fashion. The limits of dissection were the iliac vein proximally, the obturator nerve distally, the pelvic sidewall laterally, and the bladder medially. All lymphatic tissue within these limits was removed. I performed the same procedure on both the right and left sides. Hemostasis was then obtained with a combination of bipolar electrocautery and Weck clips. The lymphatic packets were then placed in separate Endo Catch bags for future retrieval. Once hemostasis was confirmed, I then moved on to reconstruct the anterior bladder neck. The anterior bladder was closed with #2-0 Vicryl suture in 2 layers until the bladder neck was of normal size. Once this was done, the vesicourethral anastomosis was performed. The vesicourethral anastomosis was performed in running fashion using a Quill stitch. Once this was done, the final #20-Urdu Parnell catheter was placed. The balloon was filled with 15 mL of sterile water. Upon completion of the vesicourethral anastomosis, it was tested by filling the bladder with sterile water. The anastomosis appeared to be watertight. At this point, the prostate and seminal vesicles were placed in an Endo Catch bag for future retrieval. A Booker-Flores drain was brought in through the left robotic port skin site and the drain was positioned anterior to the bladder. The robot was then undocked. A Vandana fascial closure device was utilized to place a #0 Vicryl suture through the fascia of the 12 mm geriatric nurse assistant port. The drain was secured to the skin with #2-0 Ethilon suture. The prostate, as well as the lymphatic packets were then extracted from the camera port site after the skin was extended. The fascia in this incision was then closed with a running #0 Vicryl stitch. Next, all the remaining ports were removed and there did not appear to be any bleeding from any of the port sites. The previously placed #0 Vicryl free ties through the geriatric nurse assistant port were then tied down and all incisions were irrigated. Last, all of the incisions were closed with running subcuticular #4-0 Monocryl sutures. Local anesthesia was applied. Dermabond was then applied to the incisions. This marked the conclusion of the procedure. The patient was then awakened from anesthesia and transported to the recovery room in stable condition. ESTIMATED BLOOD LOSS: 125 mL. COMPLICATIONS: None. SPECIMENS: Prostate and seminal vesicles, right pelvic lymph nodes, left pelvic lymph nodes. PLAN: The patient will be admitted to the hospital postoperatively, and he will likely be discharged home within the next 1-2 days. TRISTA MELTON MD Jul 08, 2019 17:38
[2019-07-08] MEDS ORDERED: fentaNYL 100 MCG/2 ML INJECTION (J3010) IV PRN (18:00)
[2019-07-08] MEDS ORDERED: LR 1,000 ML IV SCH (18:00)
[2019-07-08] MEDS ORDERED: ONDANSETRON 4MG/2ML VIAL (J2405) IV PRN (18:00)
[2019-07-08 18:19] LABS: HEMATOCRIT 41.2 % (42.0-52.0); HEMOGLOBIN 12.3 g/dl (13.5-17.5); MEAN CORPUSCULAR HEMOGLOBIN 24.3 pg (27.0-33.0); MEAN CORPUSCULAR HGB CONC 29.9 g/dl (32.0-36.5); MEAN CORPUSCULAR VOLUME 81.3 fl (80.0-96.0); PLATELET COUNT, AUTOMATED 371 10^3/uL (150-450); RED BLOOD COUNT 5.07 10^6/uL (4.30-6.10); WHITE BLOOD COUNT 13.2 10^3/uL (4.0-10.0)
[2019-07-08 18:30] VITALS: BP 113/64
[2019-07-08 18:39] LABS: BLOOD UREA NITROGEN 17 MG/DL (7-18); CALCIUM LEVEL 8.3 MG/DL (8.8-10.2); CARBON DIOXIDE LEVEL 23 MEQ/L (21-32); CHLORIDE LEVEL 106 MEQ/L (98-107); CREATININE FOR GFR 1.22 MG/DL (0.70-1.30); GLOMERULAR FILTRATION RATE > 60.0 (>42); GLUCOSE, FASTING 147 MG/DL (70-100); POTASSIUM SERUM 5.4 MEQ/L (3.5-5.1); SODIUM LEVEL 136 MEQ/L (136-145)
[2019-07-08] MEDS: NS 1,000 ML IV SCH ×2 (18:39→19:31)
[2019-07-08] MEDS: ceFAZolin SOD 1 GM in D5W MINI-BAG PLUS 50 ML IV SCH (19:31)
[2019-07-08] MEDS: DOCUSATE SODIUM 100 MG CAP PO SCH (19:32)
[2019-07-08] MEDS: PERCOCET 5MG/325MG TAB PO PRN (19:33)
[2019-07-08] MEDS ORDERED: SIMVASTATIN 20 MG TAB PO SCH (21:00)
[2019-07-08] MEDS: HEPARIN SOD (PORCINE) 5000 UNITS/ML VIAL (J1644 PER 1000UNITS) SC SCH (21:19)
[2019-07-08] MEDS: ONDANSETRON 4MG/2ML VIAL (J2405) IV PRN (21:37)
[2019-07-09] MEDS: PERCOCET 5MG/325MG TAB PO PRN ×3 (00:08→14:29)
[2019-07-09 02:04] VITALS: BP 111/64
[2019-07-09] MEDS: NS 1,000 ML IV SCH (02:29)
[2019-07-09] MEDS: HEPARIN SOD (PORCINE) 5000 UNITS/ML VIAL (J1644 PER 1000UNITS) SC SCH ×2 (05:08→14:28)
[2019-07-09] MEDS: ceFAZolin SOD 1 GM in D5W MINI-BAG PLUS 50 ML IV SCH (05:08)
[2019-07-09] MEDS: ONDANSETRON 4MG/2ML VIAL (J2405) IV PRN ×2 (05:08→14:28)
[2019-07-09 05:12] VITALS: BP 113/62
[2019-07-09 06:56] LABS: HEMATOCRIT 33.1 % (42.0-52.0); MEAN CORPUSCULAR HEMOGLOBIN 24.5 pg (27.0-33.0); MEAN CORPUSCULAR HGB CONC 31.1 g/dl (32.0-36.5); MEAN CORPUSCULAR VOLUME 78.8 fl (80.0-96.0); PLATELET COUNT, AUTOMATED 318 10^3/uL (150-450); WHITE BLOOD COUNT 8.4 10^3/uL (4.0-10.0)
[2019-07-09 07:07] LABS: HEMOGLOBIN 10.3 g/dl (13.5-17.5)
[2019-07-09 07:27] LABS: BLOOD UREA NITROGEN 14 MG/DL (7-18); CALCIUM LEVEL 7.6 MG/DL (8.8-10.2); CARBON DIOXIDE LEVEL 24 MEQ/L (21-32); CHLORIDE LEVEL 106 MEQ/L (98-107); CREATININE FOR GFR 1.03 MG/DL (0.70-1.30); GLOMERULAR FILTRATION RATE > 60.0 (>42); GLUCOSE, FASTING 106 MG/DL (70-100); POTASSIUM SERUM 4.2 MEQ/L (3.5-5.1); SODIUM LEVEL 135 MEQ/L (136-145)
--- NOTE | 2019-07-09 07:31 | IPNPDOC ---
Subjective Review oF Systems Chief Complaint The patient is a 74-year-old male admitted with a reason for visit of Prostate Cancer. Events since Last Encounter No acute events o/n. Good pain control. Had nausea this morning that has improved w/ zofran. Ambulated this morning. No f/c/ns. Objective Physical Examination General Exam: Alert, No Acute Distress ABDOMEN EXAM: Soft, Tenderness (mild), Other (incisions clean/dry/intact; HAKEEM w/ serosanguinous output) Neuro Exam: Normal Speech Psych Exam: Mental status NL, Mood NL Other physical findings catheter in place and draining dark pink urine Vital Signs/I&O Vital Signs Date Time Temp Pulse Resp B/P (MAP) Pulse Ox O2 Delivery O2 Flow Rate FiO2 07/09/19 05:12 98.0 70 15 113/62 (79) 96 Room Air 07/08/19 20:18 2.0 I&O- Last 24 Hours up to 6 AM 07/09/19 06:00 Intake Total 4000 ml Output Total 1080 ml Balance 2920 ml Laboratory Data Labs 24H Laboratory Tests 2 07/08/19 17:50: Nucleated Red Blood Cells % (auto) 0.0, Anion Gap 7L, Glomerular Filtration Rate > 60.0, Calcium Level 8.3L 07/09/19 06:42: Nucleated Red Blood Cells % (auto) 0.0 CBC/BMP Laboratory Tests 07/08/19 17:50 07/09/19 06:42 Assessment/Plan Date Seen The patient was seen on 07/09/19. Patient Summary This is a 74 y/o M POD1 s/p RALP w/ BPLND and anterior bladder neck reconstruction. He is doing well. Hb 10.3. Cr 1. Good UOP. Acceptable drain output. Plan/VTE VTE Prophylaxis Ordered?: Yes VTE Exclusion Mechanical Proph: N/A:VTE Prophy Ordered VTE Exclusion Pharmacological: N/A:VTE Prophy Ordered Plan/Urinary Catheter Urinary Catheter: Other Catheter: (catheter will need to stay in at least 14 days given large bladder neck reconstruction) Plan - percocet prn pain - cont home meds - strict I/Os - SCDs when in bed - SQH - incentive spirometry - ambulate - advance diet as tolerated TRISTA MELTON MD Jul 09, 2019 07:30
[2019-07-09] MEDS: FUROSEMIDE 20 MG/2 ML VIAL (J1940) IV ONE ×2 (07:53→08:30)
[2019-07-09] MEDS: DOCUSATE SODIUM 100 MG CAP PO SCH (08:31)
[2019-07-09] MEDS ORDERED: OMEPRAZOLE 20 MG CAP PO SCH (09:00)
[2019-07-09 14:00] VITALS: BP 97/55
[2019-07-09] MEDS ORDERED: PERCOCET PO (16:46)
[2019-07-09] MEDS ORDERED: DOCU100C16 PO (16:46)
[2019-07-09] MEDS ORDERED: BACT800T5 PO (16:46)
--- NOTE | 2019-07-10 11:34 | DSES ---
DATE OF ADMISSION: 07/08/2019 DATE OF DISCHARGE: 07/09/2019 ADMISSION DIAGNOSIS: Prostate cancer. DISCHARGE DIAGNOSES: Prostate cancer. ADMITTING PHYSICIAN: Maynor Flores MD DISCHARGE PHYSICIAN: Maynor Flores MD PROCEDURES PERFORMED: Robotic assisted laparoscopic radical prostatectomy, bilateral pelvic lymph node dissection, and anterior bladder neck reconstruction. HISTORY OF PRESENT ILLNESS: This is a 74-year-old male who underwent the above listed procedure on 07/08/2019. He was admitted to the hospital postoperatively. HOSPITALIZATION COURSE: The patient was admitted to the hospital on 07/08/2019 after undergoing the above listed procedure. His postoperative course was unremarkable. On postoperative day #1 all his blood work was within normal limits. His pain was well controlled on postoperative day #1. He ambulated well without any difficulty. He had excellent urine output from his catheter and minimal output from the Booker-Flores drain. His Booker-Flores drain was removed on postoperative day #1. He was tolerating a regular diet. On postoperative day #1, since he was doing well, he was deemed ready for discharge home. He was therefore discharged home with his catheter in place with the plan for him to followup in clinic in approximately 12 days. We will get a cystogram prior to his followup appointment. Assuming the cystogram shows no leak we will take his catheter out. At his followup appointment will also discuss the pathology results. DEION
== END 2019-07-09 18:20 | disposition home or self-care (01) ==
LOC: M SDC 10:36 → EDSTATUS 12:45 → M MS5PR 18:25 → M SDC 07-09 18:20
PROVIDERS: ATTEND Urology
DX: C61 Malignant neoplasm of prostate (principal); E78.00 Pure hypercholesterolemia, unspecified; K21.9 Gastro-esophageal reflux disease without esophagitis; I65.22 Occlusion and stenosis of left carotid artery; R33.9 Retention of urine, unspecified; M19.90 Unspecified osteoarthritis, unspecified site; R51 Headache; Z86.73 Personal history of transient ischemic attack (TIA), and cerebral infarction without residual deficits; D64.9 Anemia, unspecified; I35.8 Other nonrheumatic aortic valve disorders; Z79.899 Other long term (current) drug therapy; Z79.82 Long term (current) use of aspirin; Z79.02 Long term (current) use of antithrombotics/antiplatelets
CPT/HCPCS: 36415; 38571; 55866; 80048; 85027; 86850; 86900; 86901; 88305; 88309; 96365; 96366; 96372; 96375; 96376; J0131; J0690; J1100; J1644; J1940; J2250; J2405; J3010

== ENCOUNTER → 2019-07-19 | Outpatient (CLI) | payer MEDICARE ==
[~2019-07-19] MED LIST changes: +BACT800T5 PO; +CYSTO-CONRAY II 17.2% 250ML VIAL (Q9958) As Ordered ONE; +DOCU100C16 PO; -LIDOCAINE 1% MDV 20ML VIAL SQ PRN; -LIDOCAINE 2% INJ 100 MG/5 ML SDV (FOR ANES.) As Ordered ONE; -MIDAZOLAM INJ 2 MG/2 ML VIAL (J2250) As Ordered ONE; -ONDANSETRON 4MG/2ML VIAL (J2405) As Ordered ONE; +PERCOCET PO; -ROCURONIUM BROMIDE 50 MG/5 ML VIAL As Ordered ONE; -SUGAMMADEX SODIUM 500 MG/5 ML VIAL (BRIDION) As Ordered ONE; -dexameTHASONE 4 MG/ML 1ML VIAL (J1100) As Ordered ONE; -fentaNYL 250 MCG/5 ML INJECTION (J3010) As Ordered ONE; -propofoL 200 MG/20 ML VIAL As Ordered ONE
--- NOTE | 2019-07-19 16:44 | REP ---
CYSTOGRAM The procedure was performed under the direct supervision of Dr. Soler. The images were reviewed with Dr. Soler. The technology recruiter film shows no organomegaly or pathological masses. The intestinal gas pattern is nonspecific. There is a surgical staple noted in the pelvis. The patient arrived in the department with an existing indwelling Parnell catheter. 250 ml of Cysto-Conray II was instilled into the bladder in a retrograde flow. Images demonstrate the bladder is normal in position and contour. There is no evidence of reflux or extravasation. Impression: There is no evidence of extravasation. 0.3 minutes of fluoroscopy time was utilized for this procedure. Electronically Signed by TREVOR Salvador 07/19/2019 04:30 P Electronically Signed by Ankit Soler MD 07/19/2019 04:36 P
== END ==
LOC: M RADPRO 08:40
PROVIDERS: ATTEND Urology
DX: R32 Unspecified urinary incontinence (principal); Z90.79 Acquired absence of other genital organ(s)
CPT/HCPCS: 51600; 74430; Q9958

== ENCOUNTER 2019-07-23 11:26 | Emergency (ER) | payer MEDICARE ==
[~2019-07-23] VITALS: Ht 175.3 cm; Wt 78.6 kg
[~2019-07-23 11:26] MED LIST changes: -CYSTO-CONRAY II 17.2% 250ML VIAL (Q9958) As Ordered ONE
[2019-07-23 11:51] LABS: BASO % 0.2 % (0.0-1.0); EOS # 0.1 10^3/uL (0.0-0.5); EOS % 1.5 % (0.0-3.0); HEMATOCRIT 41.6 % (42.0-52.0); HEMOGLOBIN 12.9 g/dl (13.5-17.5); LYMPH % 10.3 % (24.0-44.0); MEAN CORPUSCULAR HEMOGLOBIN 24.3 pg (27.0-33.0); MEAN CORPUSCULAR VOLUME 78.3 fl (80.0-96.0); MONO # 0.6 10^3/uL (0.0-0.8); MONO % 5.9 % (0.0-5.0); NEUTROPHILS # 7.6 10^3/uL (1.5-8.5); NEUTROPHILS % 81.4 % (36.0-66.0); PLATELET COUNT, AUTOMATED 376 10^3/uL (150-450); RED BLOOD COUNT 5.31 10^6/uL (4.30-6.10); WHITE BLOOD COUNT 9.4 10^3/uL (4.0-10.0)
--- NOTE | 2019-07-23 12:14 | REP ---
CHEST, SINGLE VIEW: Single view of the chest is performed. Comparison 06/25/2019. Right lung is clear. There appears to be new mild patchy atelectasis or infiltrate in the left base behind the heart shadow. Heart appears mildly enlarged. There is some tortuosity of the thoracic aorta. The mediastinal silhouette is unchanged. There is again mild elevation of the left hemidiaphragm unchanged. Multiple metallic clips are seen in the left upper quadrant of the abdomen and gastroesophageal region. IMPRESSION: Mild patchy atelectasis or infiltrate left lung base. Electronically Signed by Zoltan Mccauley MD 07/23/2019 03:58 P
[2019-07-23 12:18] LABS: BLOOD UREA NITROGEN 13 MG/DL (7-18); CALCIUM LEVEL 9.4 MG/DL (8.8-10.2); CARBON DIOXIDE LEVEL 26 MEQ/L (21-32); CHLORIDE LEVEL 103 MEQ/L (98-107); CK-MB VALUE MASS < 1.0 NG/ML (<3.6); CPK CREATINE PHOSPHOKINASE 54 U/L (39-308); CREATININE FOR GFR 1.24 MG/DL (0.70-1.30); GLOMERULAR FILTRATION RATE > 60.0 (>42); GLUCOSE, FASTING 108 MG/DL (70-100); MB/CK RELATIVE INDEX 1.85 (< OR =4); POTASSIUM SERUM 4.3 MEQ/L (3.5-5.1); SODIUM LEVEL 135 MEQ/L (136-145); TROPONIN I < 0.02 NG/ML (< 0.10)
[2019-07-23] MEDS ORDERED: ONDANSETRON 4MG/2ML VIAL (J2405) IV ONE (12:45)
[2019-07-23] MEDS ORDERED: ACETAMINOPHEN 500 MG TAB PO ONE (12:45)
[2019-07-23] MEDS ORDERED: GI COCKTAIL 50ML BTL(HYOSCYAMINE/MAALOX/LIDOCAINE VISCOUS)(1:3:1) PO ONE (12:45)
[2019-07-23 13:41] LABS: INFLUENZA A AMPLIFICATION NEGATIVE (NEGATIVE); INFLUENZA B AMPLIFICATION NEGATIVE (NEGATIVE)
--- NOTE | 2019-07-23 13:46 | REP ---
CT chest without contrast: History: Possible left lower lobe infiltrate. CT findings: There are innumerable surgical clips in the left upper quadrant of the abdomen adjacent to the GE junction. There is a large hiatal hernia. There is no evidence of pulmonary parenchymal infiltrate. Minimal linear fibrosis is seen in both lower lobes. There are old fracture deformities of the left posterior rib cage. There is mild diffuse esophageal mural thickening and some esophageal air is seen question reflux esophagitis. No mass lesion is observed. There are scattered mediastinal lymph nodes. These are not enlarged individually however there are six or seven lymph nodes. No obvious hilar adenopathy is seen. No lung mass or significant pulmonary nodule is seen. There is calcific biapical pleuroparenchymal fibrosis. No bony destructive lesion is seen. Impression: No infiltrate is seen. Hiatal hernia extensive postoperative changes in the left upper quadrant. Air and some mural thickening diffusely in the esophagus question reflux esophagitis. Mild mediastinal lymphadenopathy. Electronically Signed by Ankit Soler MD 07/23/2019 01:56 P
[2019-07-23] MEDS ORDERED: ONDA4TAB6 PO (13:55)
[2019-07-23 14:33] VITALS: BP 129/75
--- NOTE | 2019-07-23 21:55 | ECGEPIP ---
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
[2019-07-24] MEDS ORDERED: PRED20TA PO (05:57)
[2019-07-24] MEDS ORDERED: REGL10TA6 PO (05:58)
== END 2019-07-23 14:52 | disposition home or self-care (01) ==
LOC: M ED 11:26
DX: R05 Cough (principal); R11.10 Vomiting, unspecified; E11.9 Type 2 diabetes mellitus without complications; E78.5 Hyperlipidemia, unspecified; K21.9 Gastro-esophageal reflux disease without esophagitis; N40.0 Benign prostatic hyperplasia without lower urinary tract symptoms; Z85.46 Personal history of malignant neoplasm of prostate; Z79.82 Long term (current) use of aspirin; Z79.899 Other long term (current) drug therapy
CPT/HCPCS: 71045; 71250; 80048; 82550; 82553; 84484; 85025; 87502; 93005; 93041; 94760; 96374; 99284; J2405

== ENCOUNTER 2019-07-24 02:15 | Emergency (ER) | payer MEDICARE ==
[~2019-07-24 02:15] MED LIST changes: +ONDA4TAB6 PO
[2019-07-24 02:47] VITALS: BP 134/71
[2019-07-24] MEDS ORDERED: diphenhydrAMINE INJ 50MG/ML VIAL (J1200) IV ONE (03:45)
[2019-07-24] MEDS ORDERED: methylPREDNISolone INJ 125 MG/2 ML VIAL (J2930) IV ONE (03:45)
[2019-07-24] MEDS ORDERED: METOCLOPRAMIDE INJ 10MG/2ML VIAL (J2765) IV ONE (04:15)
[2019-07-24] MEDS ORDERED: PRED20TA PO (05:57)
[2019-07-24] MEDS ORDERED: REGL10TA6 PO (05:58)
== END 2019-07-24 06:28 | disposition home or self-care (01) ==
LOC: M ED 02:15
DX: L27.0 Generalized skin eruption due to drugs and medicaments taken internally (principal); T50.905A Adverse effect of unspecified drugs, medicaments and biological substances, initial encounter; Z79.82 Long term (current) use of aspirin; Z79.899 Other long term (current) drug therapy
CPT/HCPCS: 96374; 96375; 99284; J1200; J2765; J2930

== ENCOUNTER → 2019-08-16 | Outpatient (CLI) | payer MEDICARE ==
[~2019-08-16] MED LIST changes: +PRED20TA PO; +REGL10TA6 PO
== END ==
LOC: M LAB 08:19
PROVIDERS: ATTEND Urology
DX: C61 Malignant neoplasm of prostate (principal)

== ENCOUNTER → 2019-11-15 | Outpatient (CLI) | payer MEDICARE | LOC: M WUC 13:57 | PROVIDERS: ATTEND Urology | DX: C61 Malignant neoplasm of prostate (principal) ==

== ENCOUNTER → 2020-02-20 | Outpatient (CLI) | payer MEDICARE | LOC: M LAB 14:14 | PROVIDERS: ATTEND Urology | DX: C61 Malignant neoplasm of prostate (principal) ==

== ENCOUNTER → 2020-04-09 | Outpatient (CLI) | payer MEDICARE ==
[2020-04-09 18:01] LABS: BLOOD UREA NITROGEN 15 MG/DL (7-18); GLOMERULAR FILTRATION RATE > 60.0 (>42)
== END ==
LOC: M WUC 13:46
PROVIDERS: ATTEND Neurological Surgery
DX: I65.22 Occlusion and stenosis of left carotid artery (principal)

== ENCOUNTER → 2020-07-08 | Outpatient (CLI) | payer MEDICARE | LOC: M LAB 11:48 | PROVIDERS: ATTEND Urology | DX: C61 Malignant neoplasm of prostate (principal) ==

== ENCOUNTER → 2020-08-14 | Outpatient (REF) | payer MEDICARE ==
[2020-08-14 17:56] LABS: PERCENT SATURATION 4.7 % (19.7-50.0)
== END ==
LOC: M LAB REF 16:23
PROVIDERS: ATTEND Family Medicine
DX: D64.9 Anemia, unspecified (principal)

== ENCOUNTER → 2020-10-16 | Outpatient (CLI) | payer MEDICARE | LOC: M WUC 10:59 | PROVIDERS: ATTEND Urology | DX: C61 Malignant neoplasm of prostate (principal) ==

== ENCOUNTER → 2020-10-19 | Outpatient (CLI) | payer MEDICARE | LOC: M LABSMTC 10:42 | PROVIDERS: ATTEND Anesthesiology | DX: Z01.812 Encounter for preprocedural laboratory examination (principal); Z11.52 Encounter for screening for COVID-19 ==

== ENCOUNTER 2020-10-24 08:46 | Day surgery (SDC) | payer MEDICARE ==
[~2020-10-24] VITALS: Ht 175.3 cm; Wt 79.8 kg
[~2020-10-24 08:46] MED LIST changes: +NS 1,000 ML IV ONE
[2020-10-24] MEDS ORDERED: propofoL 200 MG/20 ML VIAL As Ordered ONE ×2 (10:20→10:43)
[2020-10-24] MEDS ORDERED: LIDOCAINE 2% 100MG/5ML SDV (FOR ANES.) As Ordered ONE (10:20)
--- NOTE | 2020-10-24 10:45 | ROOR ---
Patient Name: Adan Rodrigues Procedure Date: 10/24/2020 10:19 AM Date of : 1945 Age: 75 Room: [facility] Gender: Male Note Status: Finalized Procedure: Total Colonoscopy to Cecum + Biopsy Polypectomy Indications: High risk colon cancer surveillance: Personal history of colonic polyps, Last colonoscopy: 2015 Providers: Juan Booth MD Referring MD: Prosper Rich MD Requesting Provider: Medicines: Monitored Anesthesia Care Complications: No immediate complications. Procedure: Pre-Anesthesia Assessment: - The heart rate, respiratory rate, oxygen saturations, blood pressure, adequacy of pulmonary ventilation, and response to care were monitored throughout the procedure. The Colonoscope was introduced through the anus and advanced to the cecum, identified by appendiceal orifice and ileocecal valve. The colonoscopy was performed without difficulty. The patient tolerated the procedure well. The quality of the bowel preparation was good. Findings: The perianal and digital rectal examinations were normal. Non-bleeding internal hemorrhoids were found during retroflexion. The hemorrhoids were small and Grade I (internal hemorrhoids that do not prolapse). A small polyp was found at 50 cm proximal to the anus. The polyp was sessile. The polyp was removed with a jumbo cold forceps. Resection and retrieval were complete. The exam was otherwise without abnormality on direct and retroflexion views. Impression: - Non-bleeding internal hemorrhoids. - One small polyp at 50 cm proximal to the anus, removed with a jumbo cold forceps. Resected and retrieved. - The examination was otherwise normal on direct and retroflexion views. - The exam was otherwise normal to the cecum. Recommendation: - Patient has a contact number available for emergencies. The signs and symptoms of potential delayed complications were discussed with the patient. Return to normal activities tomorrow. Written discharge instructions were provided to the patient. - High fiber diet. - Discharge patient to home. - Continue present medications. - Await pathology results. - Telephone GI clinic for pathology results in 1 week. - Repeat colonoscopy in 5 years for surveillance based on pathology results. - Return to referring physician. - The findings and recommendations were discussed with the patient's family. Procedure Code(s): --- Professional --- 13272, Colonoscopy, flexible; with biopsy, single or multiple Diagnosis Code(s): --- Professional --- Z86.010, Personal history of colonic polyps K64.0, First degree hemorrhoids K63.5, Polyp of colon CPT copyright 2019 [employer]. All rights reserved. The codes documented in this report are preliminary and upon remote medical coder review may be revised to meet current compliance requirements. Juan Booth MD Juan Booth MD 10/24/2020 10:44:41 AM Electronically signed by Juan Booth MD Number of Addenda: 0 Note Initiated On: 10/24/2020 10:19 AM Estimated Blood Loss: Estimated blood loss: none.
[2020-10-24 11:05] VITALS: BP 129/66
== END 2020-10-24 11:08 | disposition home or self-care (01) ==
LOC: M OPP 08:46
PROVIDERS: ATTEND Internal Medicine Gastroenterology
DX: Z12.11 Encounter for screening for malignant neoplasm of colon (principal); Z86.010 Personal history of colon polyps; D12.6 Benign neoplasm of colon, unspecified; K64.0 First degree hemorrhoids; E78.5 Hyperlipidemia, unspecified; K21.9 Gastro-esophageal reflux disease without esophagitis; M19.90 Unspecified osteoarthritis, unspecified site; Z85.46 Personal history of malignant neoplasm of prostate; Z79.01 Long term (current) use of anticoagulants; Z79.82 Long term (current) use of aspirin; Z79.899 Other long term (current) drug therapy

== ENCOUNTER 2020-10-29 20:59 | Emergency (ER) | payer MEDICARE ==
[~2020-10-29] VITALS: Ht 175.3 cm; Wt 80.9 kg
[~2020-10-29 20:59] MED LIST changes: -NS 1,000 ML IV ONE
[2020-10-29] MEDS ORDERED: diphenhydrAMINE 50MG/ML VIAL (J1200) IV STA (21:39)
[2020-10-29] MEDS ORDERED: METOCLOPRAMIDE INJ 10MG/2ML VIAL (J2765 PER 1) IV ONE (21:40)
[2020-10-29] MEDS ORDERED: ACETAMINOPHEN TAB 650MG DOSE (2X325MG) PO ONE (21:40)
[2020-10-29 22:04] LABS: BASO # 0.1 10^3/uL (0.0-0.2); BASO % 0.5 % (0.0-1.0); EOS # 0.3 10^3/uL (0.0-0.5); EOS % 3.1 % (0.0-3.0); HEMATOCRIT 35.8 % (42.0-52.0); HEMOGLOBIN 10.8 g/dl (13.5-17.5); LYMPH # 1.8 10^3/uL (1.5-5.0); LYMPH % 17.2 % (24.0-44.0); MEAN CORPUSCULAR HEMOGLOBIN 21.9 pg (27.0-33.0); MEAN CORPUSCULAR HGB CONC 30.2 g/dl (32.0-36.5); MEAN CORPUSCULAR VOLUME 72.5 fl (80.0-96.0); MONO # 1.2 10^3/uL (0.0-0.8); MONO % 11.7 % (2.0-8.0); NEUTROPHILS # 6.9 10^3/uL (1.5-8.5); NEUTROPHILS % 66.2 % (36.0-66.0); PLATELET COUNT, AUTOMATED 432 10^3/uL (150-450); RED BLOOD COUNT 4.94 10^6/uL (4.30-6.10); WHITE BLOOD COUNT 10.5 10^3/uL (4.0-10.0)
[2020-10-29 22:15] LABS: INR 1.06
[2020-10-29 22:16] LABS: PARTIAL THROMBOPLASTIN TIME 36.5 SECONDS (24.2-38.5)
--- NOTE | 2020-10-29 22:23 | REPVR ---
PROCEDURE INFORMATION: Exam: XR Chest Exam date and time: 10/29/2020 9:52 PM Age: 75 years old Clinical indication: Other: CVA TECHNIQUE: Imaging protocol: XR of the chest. Views: 1 view. COMPARISON: CT Chest without contrast 07/23/2019 12:54 PM FINDINGS: Lungs: Degree of lung inflation is normal. Unchanged left hemidiaphragm elevation No evidence of pulmonary edema. No focal consolidation or parenchymal lung mass. Pleural spaces: No pleural effusion or pneumothorax. Heart/Mediastinum: Cardiac silhouette appears normal. No adenopathy or hilar mass. Extensive GE junction surgical clips are present Bones/joints: Osseous structures show no concerning abnormality. IMPRESSION: No acute or focal cardiopulmonary process. Electronically signed by: Michel Dunbar On 10/29/2020 22:23:48 PM
[2020-10-29 22:25] LABS: BLOOD UREA NITROGEN 16 MG/DL (7-18); CALCIUM LEVEL 8.3 MG/DL (8.8-10.2); CARBON DIOXIDE LEVEL 26 MEQ/L (21-32); CHLORIDE LEVEL 102 MEQ/L (98-107); CK-MB VALUE MASS < 1.0 NG/ML (<3.6); CPK CREATINE PHOSPHOKINASE 50 U/L (39-308); CREATININE FOR GFR 0.96 MG/DL (0.70-1.30); GLOMERULAR FILTRATION RATE > 60.0 (>42); GLUCOSE, FASTING 121 MG/DL (70-100); POTASSIUM SERUM 3.8 MEQ/L (3.5-5.1); SODIUM LEVEL 137 MEQ/L (136-145); TROPONIN I < 0.02 NG/ML (< 0.10)
--- NOTE | 2020-10-29 22:25 | REPVR ---
PROCEDURE INFORMATION: Exam: CT Head Without Contrast Exam date and time: 10/29/2020 10:04 PM Age: 75 years old Clinical indication: Pain; Headache not specified; Additional info: CVA - nursing interventions must not delay CT TECHNIQUE: Imaging protocol: Computed tomography of the head without contrast. Radiation optimization: All CT scans at this facility use at least one of these dose optimization techniques: automated exposure control; mA and/or kV adjustment per patient size (includes targeted exams where dose is matched to clinical indication); or iterative reconstruction. COMPARISON: CT Head without contrast 08/03/2014 7:12 AM FINDINGS: Brain: No intracranial mass, mass effect or midline shift. No acute intracranial hemorrhage. No CT evidence of acute cortical infarct. Ventricles, cisterns, and sulci are normal in size for age. Bones/joints: No calvarial fracture or destructive process. Paranasal sinuses: Imaged paranasal sinuses are normally aerated. Mastoid air cells: Under aerated mastoid air cells. No middle ear opacification or change since 2014. Orbital cavity: Imaged orbits are unremarkable. Soft tissues: No focal extracranial soft tissue swelling. IMPRESSION: No acute or concerning focal intracranial abnormality. Electronically signed by: Michel Dunbar On 10/29/2020 22:25:05 PM
[2020-10-30] MEDS ORDERED: BENA25CA4 PO (01:34)
[2020-10-30] MEDS ORDERED: TYLE650T38 PO (01:34)
[2020-10-30] MEDS ORDERED: METO5TAB2 PO (01:34)
[2020-10-30 02:15] VITALS: BP 139/69
--- NOTE | 2020-10-30 13:30 | ECGEPIP ---
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
== END 2020-10-30 02:27 | disposition home or self-care (01) ==
LOC: M ED 20:59
DX: G44.209 Tension-type headache, unspecified, not intractable (principal); Z79.82 Long term (current) use of aspirin; Z79.02 Long term (current) use of antithrombotics/antiplatelets; Z79.899 Other long term (current) drug therapy
CPT/HCPCS: 70450; 71045; 80048; 82550; 82553; 84484; 85025; 85610; 85730; 93005; 93041; 94760; 96374; 96375; 99285; J1200; J2765

== ENCOUNTER → 2021-01-15 | Outpatient (CLI) | payer MEDICARE ==
[~2021-01-15] MED LIST changes: +BENA25CA4 PO; +METO5TAB2 PO; +TYLE650T38 PO
== END ==
LOC: M WUC 10:26
PROVIDERS: ATTEND Urology
DX: C61 Malignant neoplasm of prostate (principal)

== ENCOUNTER → 2021-03-28 | Outpatient (REF) | payer MEDICARE | LOC: M LAB REF 11:11 | PROVIDERS: ATTEND Family Medicine | DX: D50.9 Iron deficiency anemia, unspecified (principal) ==

== ENCOUNTER → 2021-05-02 | Outpatient (CLI) | payer MEDICARE | LOC: M WUC 10:25 | PROVIDERS: ATTEND Urology | DX: C61 Malignant neoplasm of prostate (principal) ==

== ENCOUNTER → 2021-06-18 | Outpatient (REF) | payer MEDICARE | LOC: M LAB REF 11:56 | PROVIDERS: ATTEND Family Medicine | DX: D50.9 Iron deficiency anemia, unspecified (principal) ==

== ENCOUNTER → 2021-07-23 | Outpatient (REF) | payer MEDICARE ==
[~2021-07-23] MED LIST changes: +OMEP-173 PO; -OMEP-218 PO
== END ==
LOC: M LABWUC 09:24
PROVIDERS: ATTEND Urology
DX: C61 Malignant neoplasm of prostate (principal)

== ENCOUNTER → 2021-09-07 | Outpatient (REF) | payer MEDICARE | LOC: M LABWUC 11:43 | PROVIDERS: ATTEND Urology | DX: C61 Malignant neoplasm of prostate (principal) ==

== ENCOUNTER → 2021-10-03 | Outpatient (CLI) | payer MEDICARE ==
[2021-10-03 16:48] LABS: BLOOD UREA NITROGEN 16 MG/DL (7-18); CREATININE FOR GFR 1.09 MG/DL (0.70-1.30); GLOMERULAR FILTRATION RATE > 60.0 (>42)
== END ==
LOC: M LAB 14:58
PROVIDERS: ATTEND Neurological Surgery
DX: I65.22 Occlusion and stenosis of left carotid artery (principal)

== ENCOUNTER → 2021-11-02 | Outpatient (REF) | payer MEDICARE | LOC: M LAB REF 12:25 | PROVIDERS: ATTEND Family Medicine | DX: D50.9 Iron deficiency anemia, unspecified (principal) ==

== ENCOUNTER → 2021-12-03 | Outpatient (CLI) | payer MEDICARE | LOC: M WUC 08:40 | PROVIDERS: ATTEND Urology | DX: C61 Malignant neoplasm of prostate (principal) ==

== ENCOUNTER → 2022-03-20 | Outpatient (CLI) | payer MEDICARE ==
[~2022-03-20] MED LIST changes: +LEVO1TAB40 PO; -LEVO750T13 PO
== END ==
LOC: M WUC 11:00
PROVIDERS: ATTEND Urology
DX: C61 Malignant neoplasm of prostate (principal)

== ENCOUNTER 2022-06-08 10:40 | Emergency (ER) | payer MEDICARE ==
[~2022-06-08] VITALS: Ht 175.3 cm; Wt 78.0 kg
[~2022-06-08 10:40] MED LIST changes: +CLOP75TA99 PO; -PLAV1TAB2 PO
[2022-06-08 11:24] LABS: BASO % 0.3 % (0.0-1.0); EOS # 0.1 10^3/uL (0.0-0.5); EOS % 0.5 % (0.0-3.0); HEMATOCRIT 45.2 % (42.0-52.0); HEMOGLOBIN 14.7 g/dl (13.5-17.5); LYMPH # 1.1 10^3/uL (1.5-5.0); LYMPH % 10.5 % (24.0-44.0); MEAN CORPUSCULAR HEMOGLOBIN 26.2 pg (27.0-33.0); MEAN CORPUSCULAR HGB CONC 32.5 g/dl (32.0-36.5); MEAN CORPUSCULAR VOLUME 80.4 fl (80.0-96.0); MONO # 0.6 10^3/uL (0.0-0.8); MONO % 5.9 % (2.0-8.0); NEUTROPHILS # 8.8 10^3/uL (1.5-8.5); NEUTROPHILS % 82.1 % (36.0-66.0); PLATELET COUNT, AUTOMATED 314 10^3/uL (150-450); RED BLOOD COUNT 5.62 10^6/uL (4.30-6.10); WHITE BLOOD COUNT 10.7 10^3/uL (4.0-10.0)
[2022-06-08 12:03] LABS: ALKALINE PHOSPHATASE 132 U/L (46-116); ALT/SGPT 31 U/L (7.0-40); AST/SGOT 26 U/L (<34); BILIRUBIN,TOTAL 0.5 MG/DL (0.3-1.2); BLOOD UREA NITROGEN 14 MG/DL (9-23); CALCIUM LEVEL 9.3 MG/DL (8.3-10.6); CARBON DIOXIDE LEVEL 21 MMOL/L (20-31); CHLORIDE LEVEL 100 MMOL/L (98-107); CREATININE FOR GFR 0.96 MG/DL (0.70-1.30); GLOMERULAR FILTRATION RATE > 60.0 (>42); GLUCOSE, FASTING 102 MG/DL (74-106); POTASSIUM SERUM 4.1 MMOL/L (3.5-5.1); SODIUM LEVEL 136 MMOL/L (136-145); TOTAL PROTEIN 7.9 G/DL (5.7-8.2)
[2022-06-08 14:30] VITALS: BP 146/69
[2022-06-08 14:38] LABS: RSV AMPLIFICATION NEGATIVE (NEGATIVE)
== END 2022-06-08 14:36 | disposition short-term general hospital (02) ==
LOC: EDBD 10:40 → M ED 10:40
DX: T58.91XA Toxic effect of carbon monoxide from unspecified source, accidental (unintentional), initial encounter (principal); K21.9 Gastro-esophageal reflux disease without esophagitis; N40.0 Benign prostatic hyperplasia without lower urinary tract symptoms; Z79.82 Long term (current) use of aspirin; Z79.02 Long term (current) use of antithrombotics/antiplatelets

== ENCOUNTER → 2022-06-17 | Outpatient (CLI) | payer MEDICARE | LOC: M LAB 13:21 | PROVIDERS: ATTEND Urology | DX: C61 Malignant neoplasm of prostate (principal) ==

== ENCOUNTER → 2022-06-18 | Outpatient (REF) | payer MEDICARE ==
[2022-06-18 13:53] LABS: PERCENT SATURATION 7.9 % (19.7-50.0)
== END ==
LOC: M LAB REF 12:28
PROVIDERS: ATTEND Family Medicine
DX: D50.9 Iron deficiency anemia, unspecified (principal)

== ENCOUNTER → 2022-09-19 | Outpatient (CLI) | payer MEDICARE ==
[2022-09-19 11:56] LABS: BLOOD UREA NITROGEN 12 MG/DL (9-23); CREATININE FOR GFR 0.96 MG/DL (0.70-1.30); GLOMERULAR FILTRATION RATE > 60.0 (>42)
== END ==
LOC: M LAB 10:51
PROVIDERS: ATTEND Neurological Surgery
DX: I65.22 Occlusion and stenosis of left carotid artery (principal)

== ENCOUNTER → 2022-12-18 | Outpatient (REF) | payer MEDICARE | LOC: M LABWUC 13:58 | PROVIDERS: ATTEND Urology | DX: C61 Malignant neoplasm of prostate (principal) ==

== ENCOUNTER → 2023-01-09 | Outpatient (CLI) | payer MEDICARE ==
[2023-01-09 17:52] LABS: THYROID STIMULATING HORMONE 4.837 uIU/ML (0.55-4.78)
[2023-01-09 17:54] LABS: FOLATE 7.46 NG/ML (>5.4)
== END ==
LOC: M WUC 11:10
PROVIDERS: ATTEND Psychiatry & Neurology Neurology
DX: R41.3 Other amnesia (principal); E53.8 Deficiency of other specified B group vitamins; E51.9 Thiamine deficiency, unspecified

== ENCOUNTER → 2023-04-15 | Outpatient (CLI) | payer MEDICARE ==
[2023-04-15 08:27] LABS: BLOOD UREA NITROGEN 13 MG/DL (9-23)
[2023-04-15 08:28] LABS: C REACTIVE PROTEIN QUANTITATIV < 0.40 MG/DL (<1.0)
== END ==
LOC: M LAB 07:33
PROVIDERS: ATTEND Neurological Surgery
DX: I65.22 Occlusion and stenosis of left carotid artery (principal)

== ENCOUNTER → 2023-04-21 | Outpatient (REF) | payer MEDICARE ==
[2023-04-21 13:00] LABS: FERRITIN 18.3 NG/ML (10.5-307.3)
== END ==
LOC: M LAB REF 09:19
PROVIDERS: ATTEND Family Medicine
DX: D64.9 Anemia, unspecified (principal)

== ENCOUNTER → 2023-06-02 | Outpatient (REF) | payer MEDICARE | LOC: M LABWUC 16:21 | PROVIDERS: ATTEND Urology | DX: C61 Malignant neoplasm of prostate (principal) ==

== ENCOUNTER → 2023-09-19 | Outpatient (REF) | payer MEDICARE ==
[2023-09-19 20:21] LABS: PERCENT SATURATION 6.7 % (19.7-50.0)
== END ==
LOC: M LAB REF 17:21
PROVIDERS: ATTEND Family Medicine
DX: D50.9 Iron deficiency anemia, unspecified (principal)

== ENCOUNTER → 2024-01-26 | Outpatient (REF) | payer MEDICARE ==
[~2024-01-26] MED LIST changes: +ONDA-282 PO; -ONDA4TAB6 PO
[2024-01-26 13:25] LABS: PERCENT SATURATION 11.1 % (19.7-50.0)
[2024-01-26 13:27] LABS: FERRITIN 24.7 NG/ML (10.5-307.3)
== END ==
LOC: M LAB REF 12:41
PROVIDERS: ATTEND Family Medicine
DX: D50.9 Iron deficiency anemia, unspecified (principal)

== ENCOUNTER → 2024-02-02 | Outpatient (CLI) | payer MEDICARE | LOC: M LAB 12:38 | PROVIDERS: ATTEND Urology | DX: C61 Malignant neoplasm of prostate (principal) ==

== ENCOUNTER → 2024-05-31 | Outpatient (CLI) | payer MEDICARE | LOC: M LAB 07:53 | PROVIDERS: ATTEND Urology | DX: C61 Malignant neoplasm of prostate (principal) ==

== ENCOUNTER → 2024-12-22 | Outpatient (CLI) | payer MEDICARE | LOC: M WUC 08:54 | PROVIDERS: ATTEND Urology | DX: C61 Malignant neoplasm of prostate (principal) ==

== ENCOUNTER → 2025-05-02 | Outpatient (CLI) | payer MEDICARE ==
[2025-05-02 14:45] LABS: CREATININE FOR GFR 1.0 MG/DL (0.70-1.30); GLOMERULAR FILTRATION RATE 77.0 (>42)
== END ==
LOC: M LAB 13:45
PROVIDERS: ATTEND Neurological Surgery
DX: Z51.81 Encounter for therapeutic drug level monitoring (principal); Z79.01 Long term (current) use of anticoagulants; Z79.82 Long term (current) use of aspirin